=== PATIENT | male | born 1985 | race Caucasian/White ===

== ENCOUNTER 2016-07-29 14:48 | Emergency (ER) | payer OTHER ==
--- NOTE | ~2016-07-29 | CT71 ---
[facility] A Service [facility] RADIOLOGY TEXT RESULTS PATIENT: JUDY DOMÍNGUEZ LOCATION: [facility] : 85 UNIT #: [id number] AGE: [address]: Sergei Rosales DO SEX: M ORDER DR: [id number] [place] [id number] [facility] [place], [place] [address] [id number] E MR#: [id number] Acc #: [id number] NAME: JUDY DOMÍNGUEZ : 1985 SEX: M STUDY DATE/TIME: 07/29/2016 18:34 UNIT: [facility] ROOM: STUDY DESCRIPTION: CT Head Wo Contrast Attending Physician: Sergei Rosales D.O. Ordering Physician: Sergei Rosales D.O. Primary Care Physician: No Primary Care Physician MEDICAL IMAGING REPORT This report is preliminary unless electronic signature is present EXAM CT head without contrast. INDICATIONS Forehead pain after fall today. PROCEDURE Unenhanced CT of the head. This CT exam was performed with one or more of the following radiation dose reduction techniques: automatic exposure control, adjustment of mA and/or kV according to patient size, and iterative reconstruction. COMPARISON None. FINDINGS No acute hemorrhage, abnormal mass effect, extraaxial collection or hydrocephalus. No calvarial fracture. Paranasal sinuses, mastoid air cells are predominantly clear. IMPRESSION No acute intracranial findings. Dictated by... Luis Escoto M.D. THIS IS AN ELECTRONICALLY VERIFIED REPORT Luis Escoto M.D. at 08/01/2016 7:02 AM EED/gz TD: 07/30/2016 09:15 JOB #: [id number] [facility] A Service [facility] RADIOLOGY TEXT RESULTS PATIENT: JUDY DOMÍNGUEZ LOCATION: [facility] : 85 UNIT #: [id number] AGE: [address]: Sergei Rosales DO SEX: M ORDER DR: MEDICAL IMAGING REPORT COPY
--- NOTE | ~2016-07-29 | CT4 ---
[facility] A Service of [facility] RADIOLOGY TEXT RESULTS PATIENT: JUDY DOMÍNGUEZ LOCATION: [facility] : 85 UNIT #: [id number] AGE: [address]: Sergei Rosales DO SEX: M ORDER DR: [id number] [facility] [address] [place], [place] [address] [id number] E MR#: [id number] Acc #: [id number] NAME: JUDY DOMÍNGUEZ : 1985 SEX: M STUDY DATE/TIME: 07/29/2016 19:31 UNIT: [facility] ROOM: STUDY DESCRIPTION: CT Abd and Pelv Wo Cont Attending Physician: Sergei Rosales D.O. Ordering Physician: Sergei Rosales D.O. Primary Care Physician: No Primary Care Physician MEDICAL IMAGING REPORT This report is preliminary unless electronic signature is present EXAM CT scan of the abdomen and pelvis without contrast 07/29/2016. HISTORY Left flank pain and back pain for 1.5 weeks, right flank pain for the last 3 days. Evaluate for obstructing renal calculus. TECHNIQUE Spiral CT was performed through the abdomen and pelvis without oral or intravenous contrast administration using renal stone protocol. This CT exam was performed with one or more of the following radiation dose reduction techniques: automatic exposure control, adjustment of mA and/or kV according to patient size, and iterative reconstruction. FINDINGS Abdomen: There is no obstructing renal or ureteral calculus. The kidneys are normal bilaterally. Visualized liver, spleen, pancreas, gallbladder and biliary tree and adrenal glands are normal. Pelvis: The gut, mesenteric and cleo structures are normal. There is no free fluid in the abdomen or pelvis. IMPRESSION No obstructing renal or ureteral calculus. Dictated by... Favian Polk M.D. THIS IS AN ELECTRONICALLY VERIFIED REPORT Favian Polk M.D. at 07/30/2016 2:14 PM KRT/gz [facility] A Service of [facility] RADIOLOGY TEXT RESULTS PATIENT: JUDY DOMÍNGUEZ [id number] [birth year] UNIT #: [id number] AGE: [address]: Sergei Rosales DO SEX: M ORDER DR: TD: 07/30/2016 09:30 JOB #: [id number] MEDICAL IMAGING REPORT COPY
--- NOTE | ~2016-07-29 | EKG ---
PATIENT: JUDY DOMÍNGUEZ UNIT #: [id number] Ventricular Rate: 85 BPM Atrial Rate: 85 BPM P-R Interval: 138 ms QRS Duration: 88 ms Q-T Interval: 370 ms QTC Calculation(Bezet): 440 ms P [place]: 22 degrees Calculated R [place]: 7 degrees Calculated T [place]: 6 degrees Diagnosis Line: Normal sinus rhythm Diagnosis Line: Normal ECG Diagnosis Line: No previous ECGs available Diagnosis Line: Confirmed by CLEMENTINA CUENCA MD ([id number]) on Diagnosis Line: 07/31/2016 12:04:06 AM INTERPRETING MD: BANG PARIKH
--- NOTE | ~2016-07-29 | CR72 ---
[facility] A Service of [facility] RADIOLOGY TEXT RESULTS PATIENT: JUDY DOMÍNGUEZ LOCATION: [facility] : 85 UNIT #: [id number] AGE: [address]: Sergei Rosales DO SEX: M ORDER DR: [id number] [facility] [address] [place], [place] [address] [id number] E MR#: [id number] Acc #: [id number] NAME: JUDY DOMÍNGUEZ : 1985 SEX: M STUDY DATE/TIME: 07/29/2016 14:58 UNIT: [facility] ROOM: STUDY DESCRIPTION: CR Chest Single View Portable Attending Physician: Sergei Rosales D.O. Ordering Physician: Sergei Rosales D.O. Primary Care Physician: Primary Care Physician No MEDICAL IMAGING REPORT This report is preliminary unless electronic signature is present EXAM Portable chest INDICATIONS Syncopal episode today. Questionable overdose. PROCEDURE Frontal view chest COMPARISON 07/07/2016 FINDINGS Heart size is not significantly changed. Poor inspiratory effort but no dense consolidation, effusion or pneumothorax. IMPRESSION No active process. Dictated by... Luis Escoto M.D. THIS IS AN ELECTRONICALLY VERIFIED REPORT Luis Escoto M.D. at 08/01/2016 7:01 AM SERGIO/linh TD: 07/30/2016 07:19 JOB #: [id number] MEDICAL IMAGING REPORT COPY
[~2016-07-29 14:48] MED LIST: AMOXICILLIN875 MG PO; DEXILANT30 MG PO; GABAPENTIN600 MG PO; PAXIL40 MG PO; PROAIR HFA8.5 GM INH
[2016-07-29 15:11] LABS: BASOPHIL% 0.2 % (0-2.5); EOSINOPHIL# 0.1 X10e3 (0-0.7); EOSINOPHIL% 1.6 % (0.0-7.0); HEMATOCRIT 38.5 % (38.0-50.0); HEMOGLOBIN 13.1 gm/dL (13.0-16.0); LYMPHOCYTE# 1.5 X10e3 (1.0-3.5); LYMPHOCYTE% 23.1 % (17.0-45.0); MEAN CELL VOLUME 81.8 FL (83-96); MEAN CORPUSCULAR HEMOGLOBIN 27.9 PG (28-34); MEAN CORPUSCULAR HGB CONC 34.1 g/dL (30-36); MEAN PLATELET VOLUME 8.1 FL (6.5-11.5); MONOCYTE# 0.5 X10e3 (0-1.0); MONOCYTE% 7.9 % (3.0-12.0); NEUTROPHIL# 4.2 X10e3 (1.5-7.1); NEUTROPHIL% 67.2 % (40-75); PLATELET COUNT 186 X10e3 (140-420); RED BLOOD COUNT 4.71 X10e (3.90-5.60); WHITE BLOOD COUNT 6.3 X10e3 (4.0-10.5)
[2016-07-29 15:13] LABS: POC - CKMB <1.0 ng/mL (0.0-7.9); POC - TROPONIN <0.05 ng/mL (<=0.05)
[2016-07-29 15:15] LABS: DIFF IND NO
[2016-07-29 15:21] LABS: PARTIAL THROMBOPLASTIN TIME 27.2 SECONDS (23.5-31.3)
[2016-07-29 15:32] LABS: ALBUMIN SERUM 3.9 g/dL (3.5-5.0); ALKALINE PHOSPHATASE 63 U/L (32-92); ALT (SGPT) 15 U/L (10-40); AST (SGOT) 25 U/L (10-42); BILIRUBIN, DIRECT 0.1 mg/dL (0.0-0.2); BILIRUBIN,INDIRECT 0.4 mg/dL (0.0-0.9); BILIRUBIN,TOTAL 0.5 mg/dL (0.2-2.0); BLOOD UREA NITROGEN 9 mg/dL (9-23); CALCIUM SERUM 8.5 mg/dL (8.4-10.2); CARBON DIOXIDE 27 mmol/L (22-31); CHLORIDE 102 mmol/L (100-111); GLOM FILT RATE Estimated ABOVE60 mL/min (>60); GLUCOSE FASTING 113 mg/dL (70-110); POTASSIUM 3.8 mmol/L (3.5-5.1); PROTEIN TOTAL SERUM 7.9 g/dL (6.0-8.3); SODIUM 135 mmol/L (135-145)
== END 2016-07-29 21:00 | disposition home or self-care (01) ==
LOC: CED 14:48
PROVIDERS: Emergency Medicine
DX: T40.601A Poisoning by unspecified narcotics, accidental (unintentional), initial encounter (principal); R55 Syncope and collapse; Y92.9 Unspecified place or not applicable; F41.9 Anxiety disorder, unspecified; Z88.1 Allergy status to other antibiotic agents; Z79.899 Other long term (current) drug therapy
CPT/HCPCS: 36415; 70450; 71010; 74176; 80048; 80076; 82553; 84484; 85025; 85379; 85610; 85730; 93005; 96361; 96374; 99284; J2405

== ENCOUNTER 2016-07-30 03:07 | Inpatient (IN) | payer OTHER ==
--- NOTE | ~2016-07-30 | DS ---
Unit #: [id number] #: [id number] Patient: JUDY DOMÍNGUEZ [id number] [address] [address] [id number] I MR#: [id number] NAME: JUDY DOMÍNGUEZ ROOM: 308 Age: 31 Sex: M Admission Date: 07/30/2016 : 1985 Discharge Date: 08/01/2016 Attending Physician: Adam Osuna M.D. DISCHARGE SUMMARY ADMISSION DIAGNOSES 1. Sepsis syndrome. 2. Aspiration pneumonia, possible Staphylococcus aureus. 3. Acute hypoxemic respiratory failure. 4. Heroin overdose, recurrent. 5. Hepatitis C. 6. Depression without suicidal ideation. 7. Tobacco abuse. DISCHARGE DIAGNOSES 1. Sepsis syndrome, resolved. 2. Aspiration pneumonia, possible Staphylococcus aureus, stable. 3. Acute hypoxemic respiratory failure, resolved. 4. Heroin overdose, recurrent. 5. Hepatitis C. 6. Depression without suicidal ideation. 7. Tobacco abuse. 8. Rule out possible endocarditis, ruled out. [employer] Brett Steele M.D., Psychiatry. PROCEDURES None. ALLERGIES Doxycycline. DIAGNOSTIC STUDIES LABORATORY RESULTS: WBC 4.9, hemoglobin 11.7, hematocrit 35.2, platelet count 165,000. Sodium 140, potassium 3.8, chloride 104, CO2 of 30, glucose 95, BUN 9, creatinine 1.2, calcium 8.6, AST 20, ALT 12, alkaline phos 45, bilirubin total 1.3, total protein 6.7, albumin 3.4. Blood cultures, preliminary x2, no growth at 24 hours. Final blood culture is pending at this time. Procalcitonin 0.19. Hepatitis B surface antigen negative, hepatitis C antibody positive. HIV 1/2 antigen/antibody screen nonreactive. Admission lactic acid 1.1. IMAGING STUDIES: Two-view chest x-ray, 07/31/2016, conclusion; no active disease. CT of the abdomen and pelvis without contrast, 07/29/2016, impression; no obstructing renal or ureteral calculus. CT of the head, 07/29/2016, impression; no acute intracranial findings. Unit #: [id number] #: [id number] Patient: JUDY DOMÍNGUEZ Transthoracic echocardiogram, conclusions; left ventricle size is normal, normal left ventricular wall thickness, impaired relaxation (grade 1 diastolic dysfunction), globally normal left ventricular systolic function, ejection fraction is visually estimated at 55%, normal right ventricular size and function, mild tricuspid regurgitation, no documentation of agitation. DISCHARGE CONDITION Stable. DISCHARGE MEDICATIONS Proventil HFA 2 puffs inhaled q.4 hours p.r.n. shortness of air, Neurontin 300 mg p.o. t.i.d., Paxil 40 mg p.o. daily, trazodone 100 mg p.o. at bedtime, Requip 1 mg p.o. b.i.d., Vistaril 50 mg p.o. t.i.d., Protonix 40 mg p.o. daily, Fluzone 0.5 mL IM date of discharge if not contraindicated. DISCHARGE DISPOSITION Home. Home health not needed per conversation between Dr. Osuna and Dr. Steele. The patient initially was to be transferred directly to [facility]; however, the patient has decided on discharge home and he is to follow up with Dr. Steele per his recommendations for further treatment of IV drug [facility] at [facility]. DISCHARGE INSTRUCTIONS 1. The patient will be discharged home. The patient is to call and schedule a followup appointment with his primary care physician in 5 to 7 days. 2. Please note, the patient has been given a prescription for 30 day supply of the following medications and these appeared to be new medications for the patient prescribed during this hospitalization; trazodone, Requip, Vistaril, and Protonix. There are no refills on these medications and this patient is to follow up with his primary care physician and Dr. Steele after discharge. HOSPITAL COURSE The patient is a 31-year-old, male, who presented to [facility] on the date of admission with complaint of shortness of breath and coughing up blood. The patient is noted have a history of heroin and Suboxone abuse. It is noted to be the patient's third inpatient admission for opioid overdose in the past 4 months period. The patient's mother stated he had been found in bed with an IV and presumably had used heroin. Chest x-ray showed worsening infiltrate on the left per Dr. Oneil's personal review of the radiology film. The patient was admitted to the hospital for admission diagnoses above. Blood cultures were drawn prior to initiation of IV antibiotic therapy with Zosyn and vancomycin. Dr. Steele was consulted for further psychiatric evaluation and management of the patient's continued drug abuse. Please refer to history and physical report for complete details. Sepsis syndrome; the patient was treated with IV antibiotics and procalcitonin was checked, which revealed a result of 0.19. The patient's white count, respiratory rate, blood pressure are all stable at this time. The patient is alert and oriented. Sputum cultures are pending at this time. The patient is asymptomatic. The patient was underwent a 2D echocardiogram, which showed no vegetation. Summary is as dictated above. At this time, upon discussion with Dr. Osuna, because the patient is afebrile, has a normal white count, and is alert and oriented x3, and wants to be discharged, we will discontinue all antibiotics and the Unit #: [id number] #: [id number] Patient: JUDY DOMÍNGUEZ patient will follow up with his primary care physician. Heroin overdose, recurrent. Dr. Steele was consulted and initially the plan was for the patient to be transferred to [facility]. The patient was started on Desyrel, Requip, Vistaril per order of Dr. Steele. The patient has not shown active signs of withdrawal at this time. Again, the plan is for the patient to follow up with Dr. Steele as an outpatient and to undergo therapy for IV drug abuse at [facility] on an outpatient basis. Hep C; the patient is aware of this diagnosis. He is to follow up with his primary care physician for referral to vice president fixed income for further evaluation and management of this condition, if indicated. Tobacco abuse; the patient has been counseled on smoking cessation and he has verbalized understanding of this information. The patient has been evaluated by Dr. Osuna. He has been cleared for discharge home with the above referenced discharge medications and followup instructions. All of his questions have been answered. Dictated by... Eneida Ivy A.P.R.N. for Alice Gilliland/krystal TD: 08/03/2016 01:03 JOB #: [id number] DISCHARGE SUMMARY X Eneida Ivy APRN X DISCHARGE SUMMARY
--- NOTE | ~2016-07-30 | CR63 ---
[facility] A Service of [facility] RADIOLOGY TEXT RESULTS PATIENT: JUDY DOMÍNGUEZ LOCATION: [facility] 308-01 : 85 UNIT #: [id number] AGE: [address]: Adam Osuna MD SEX: M ORDER DR: [id number] [facility] [address] [place], [place] [address] [id number] I MR#: [id number] Acc #: [id number] NAME: JUDY DOMÍNGUEZ : 1985 SEX: M STUDY DATE/TIME: 07/31/2016 13:08 UNIT: [address] ROOM: [facility] STUDY DESCRIPTION: CR Chest 2 View Attending Physician: Adam Osuna M.D. Ordering Physician: Adam Osuna M.D. Primary Care Physician: No Primary Care Physician MEDICAL IMAGING REPORT This report is preliminary unless electronic signature is present EXAM Chest, PA and lateral. HISTORY Shortness of breath, cough, congestion, and fever for 3 days. TECHNIQUE PA and lateral views of the chest are obtained. FINDINGS The cardiovascular configuration of the chest appears normal and the lungs are clear. CONCLUSION No active disease. Dictated by... Jer Valladares M.D. THIS IS AN ELECTRONICALLY VERIFIED REPORT Jer Valladares M.D. at 08/01/2016 8:00 AM FRANCIS/sofie TD: 07/31/2016 16:10 JOB #: [id number] MEDICAL IMAGING REPORT COPY
--- NOTE | ~2016-07-30 | CR72 ---
[facility] A Service of [facility] & [facility] RADIOLOGY TEXT RESULTS PATIENT: JUDY DOMÍNGUEZ LOCATION: [place] [id number] : [birth year] UNIT #: [id number] AGE: [address]: Song Oneil MD SEX: M ORDER DR: [id number] [facility] [address] [place], [place] [address] [id number] I MR#: [id number] Acc #: [id number] NAME: JUDY DOMÍNGUEZ : 1985 SEX: M STUDY DATE/TIME: 07/30/2016 1:15 UNIT: [facility] ROOM: [facility] STUDY DESCRIPTION: CR Chest Single View Portable Attending Physician: Song Oneil M.D. Ordering Physician: Fabrice Zelaya M.D. Primary Care Physician: No Primary Care Physician MEDICAL IMAGING REPORT This report is preliminary unless electronic signature is present EXAM AP portable chest. Date: 07/30/2016 at 01:17. HISTORY Shortness breath, cough and weakness today. COMPARISON AP portable chest 07/29/2016 at 14:58. FINDINGS Faint reticular interstitial type infiltrates are seen diffusely throughout the left lung and within the right [id number] lung zone. No dense consolidative changes are identified. No pleural effusion or pneumothorax is seen. Heart size is normal. No pleural effusion. No pneumothorax. Suspected faint reticular interstitial type infiltrates throughout the left lung and to a lesser degree right lower lobe. Correlate clinically for atypical interstitial pneumonia. Short-term radiographic followup recommended. Dictated by... Ena Alexis M.D. THIS IS AN ELECTRONICALLY VERIFIED REPORT Ena Alexis M.D. at 07/30/2016 9:57 PM LLH/gz TD: 07/30/2016 12:01 JOB #: [id number] MEDICAL IMAGING REPORT COPY
--- NOTE | ~2016-07-30 | HP ---
Unit #: [id number] #: [id number] Patient: DALJIT SHARMA [id number] [address] [place], [place] [address] [id number] I MR#: [id number] NAME: DALJIT SHARMA ROOM: [facility] Age: 31 Sex: M Admission Date: 07/30/2016 : 1985 Attending Physician: Song Oneil M.D. Primary Care Physician: No Primary Care Physician HISTORY AND PHYSICAL REASON FOR ADMISSION Acute hypoxemic respiratory failure. CHIEF COMPLAINT Shortness of breath and "coughing up blood." HISTORY OF PRESENT ILLNESS Mr. Daljit Sharma is a 31-year-old white male with a history of heroin and Suboxone abuse for whom this is the third inpatient admission for opiate overdose in the last four months. He was previously admitted to [facility] in April. He presented to the ER 24 hours ago for unclear complaints and had a CT of his head and a CT of his abdomen for stone protocol done along with basic lab work. He was then discharged back home late last night at approximately 9 p.m. only to present back to the emergency room at 1 a.m. this morning with worse labs and vital signs and new infiltrate on his chest x-ray. Per his mother who was present with him, he had been found in his bed with an IV needed in the bed and presumably had used heroin although patient reports that he cannot remember what happened, although he does remember using Suboxone prior to his first ER visit. The patient suspects he used heroin but he denies any memory of it. He was found in the bed by his family with some frothy red vomitus on the bed next to him. There was no actual history of vomiting up fredrcik blood despite the stated chief complaint on the ER T sheet. The patient does endorse some cough over the last 24 hours, although it has not been productive of blood. He endorses some mild shortness of breath. No pain on deep breathing. No chest pain or chest pressure. No skipped heartbeats. No fevers, chills, or night sweats. He does endorse some fatigue and some mildly depressed mood but denies any suicidal ideation or homicidal ideation. PAST MEDICAL HISTORY 1. Heroin abuse. 2. Hepatitis C. 3. Repeated overdoses, unintentional. PAST SURGICAL HISTORY None. ALLERGIES Doxycycline. Unit #: [id number] #: [id number] Patient: DALJIT SHARMA HOME MEDICATIONS 1. Gabapentin 600 mg p.o. five times a day. 2. Paxil 40 mg p.o. daily. 3. ProAir HFA two puffs q.4 hours p.r.n. shortness of breath. SOCIAL HISTORY He uses chewing tobacco. No alcohol use. History of IV heroin abuse which is ongoing. Recent addition of Suboxone use as well. FAMILY HISTORY Mother with Castleman lymphoma. REVIEW OF SYSTEMS A full 10-point review of systems was done. All is completely negative except for the positives noted above in the HPI. PHYSICAL EXAMINATION VITAL SIGNS: Oxygen saturation was 86% on room air upon presentation to the emergency room this morning at 1 a.m. He is now saturating 100% on 4 L nasal cannula when I evaluated him in the ICU. Temperature is 98.2, pulse upon presentation was 128 and it is down to 86. Respiratory rate was 21 on presentation and is down to 16. Blood pressure was 88/58 within an hour of first presentation and is improved to 112/69. GENERAL: The patient is alert and oriented in no acute distress. CARDIOVASCULAR: Regular rate and rhythm. No murmurs. LUNGS: Mild inspiratory rhonchi on the left side, clear on the right. No wheezing or crackles on either side. ABDOMEN: Soft, nontender, nondistended. No mass or hepatosplenomegaly. EXTREMITIES: No clubbing, cyanosis, or edema. SKIN: No rashes or lesions. Skin is warm and dry throughout. MUSCULOSKELETAL: No joint effusions. No muscle or joint tenderness. HEAD: Normocephalic and atraumatic. EYES: Sclerae are white. Conjunctivae are normally infused. NOSE: External nares are normal. There is no bleeding or drainage. MOUTH: Mucous membranes are moist. There are no oropharyngeal lesions. NECK: Supple. No cervical lymphadenopathy. Trachea is midline. NEUROLOGIC: Patient has 5/5 strength in all four extremities. No focal neurologic deficits. DIAGNOSTIC STUDIES LABORATORY: Initial CBC upon return to the emergency room at 1 a.m. showed a white blood cell count of 14.3. Troponin was negative. Complete metabolic profile was otherwise within normal limits with the exception of calcium of 8.2. B natriuretic peptide was 18. Lactic acid was 1.1. IMAGING: Chest x-ray was reviewed which showed worsening infiltrate, especially on the left on my personal evaluation of the films. CARDIOVASCULAR: EKG showed sinus tachycardia. ASSESSMENT 1. Sepsis syndrome. 2. Aspiration pneumonia, possible Staphylococcus aureus. 3. Acute hypoxemic respiratory failure. 4. Heroin overdose, recurrent. 5. Hepatitis C. 6. Depression without suicidal ideation. 7. Tobacco abuse. Unit #: [id number] #: [id number] Patient: DALJIT SHARMA PLAN Will continue the patient on Zosyn. Will add vancomycin for now. Likely be able to discharge on clindamycin once the patient is off oxygen as long as his labs, vitals, and cultures remain improved. Will wean his oxygen as able and will consult psychiatry for his repeated drug overdoses. His mother expresses concerns that he is going to either accidentally or intentionally kill himself in the near future, although the patient denies any suicidal ideation. His overdose was severe enough to require intubation at [facility] in April. Will recommend having [facility] evaluate him for possible inpatient drug rehab at the time of discharge. Will check a urine drug screen and urinalysis and hepatitis C PCR to confirm his presumptive diagnosis of hepatitis C. Will add Lovenox for deep venous thrombosis prophylaxis. Will restart his home gabapentin at a lower dose. Dictated by Song Oneil M.D. DINORA/ana TD: 07/30/2016 11:05 JOB #: [id number] HISTORY AND PHYSICAL X Song Oneil MD X HISTORY AND PHYSICAL
--- NOTE | ~2016-07-30 | EKG ---
PATIENT: JUDY DOMÍNGUEZ UNIT #: [id number] Ventricular Rate: 111 BPM Atrial Rate: 111 BPM P-R Interval: 130 ms QRS Duration: 92 ms Q-T Interval: 338 ms QTC Calculation(Bezet): 459 ms P [place]: 52 degrees Calculated R [place]: 76 degrees Calculated T [place]: 25 degrees Diagnosis Line: Sinus tachycardia Diagnosis Line: Otherwise normal ECG Diagnosis Line: No previous ECGs available Diagnosis Line: Confirmed by CLEMENTINA CUENCA MD ([id number]) on Diagnosis Line: 07/31/2016 12:05:12 AM INTERPRETING MD: BANG PARIKH
--- NOTE | ~2016-07-30 | CO ---
Unit #: [id number] #: [id number] Patient: DALJIT DOMÍNGUEZ [id number] [facility]. [place], [place] [address] [id number] I MR#: [id number] NAME: DALJIT DOMÍNGUEZ ROOM: 308 Age: 31 Sex: M Admission Date: 07/30/2016 : 1985 Attending Physician: Adam Osuna M.D. Primary Care Physician: Heidi Primary Care Physician Consultation Date: 07/31/2016 CONSULTATION REPORT REASON FOR CONSULTATION Opiate withdrawal. HISTORY OF PRESENT ILLNESS Mr. Daljit Domínguez is a 31-year-old male seen on 07/31 in room 308 at [facility]. Patient reported using heroin IV. Reported currently having withdrawal symptoms. Patient reported last use recently. Patient reported feeling restlessness, hot and cold flashes, trouble sleeping, restlessness of his legs, mood lability, severe anxiety but denied any thoughts of harming self or others. No psychotic symptoms. PAST PSYCHIATRIC HISTORY Remarkable for history of substance abuse, as mentioned above; mainly abuses opiates. MEDICAL HISTORY History of hepatitis C. MEDICATIONS The patient is on gabapentin, Paxil, ProAir. FAMILY HISTORY/SOCIAL HISTORY The patient has a good support system. History of substance abuse. No history of any abuse. REVIEW OF SYSTEMS A complete review of systems is remarkable for above-mentioned symptoms - restlessness, anxiety. MENTAL STATUS EXAMINATION General appearance - Patient is dressed casually. Attention span, concentration - fair. Speech - Regular rate. Oriented to time, place and person. Mood and affect - Sad, dysphoric, anxious. Thought process - Coherent. Thought content - The patient denied any thoughts of harming self or others. Recent and remote memory - Fair. Language - Able to name objects, repeat phrases. Fund of knowledge - Fair. Insight and judgment - Fair to slightly impaired. DIAGNOSIS 1. PSYCHIATRIC: F11.20, opiate use disorder, severe; mood disorder NOS, F32.9. 2. SECONDARY DIAGNOSIS: Deferred. 3. MEDICAL DIAGNOSIS: Please refer to H and P. 4. STRESSOR: Psychosocial stressors. Unit #: [id number] #: [id number] Patient: DALJIT DOMÍNGUEZ ASSESSMENT AND PLAN 1. Supportive psychotherapy and psychoeducation provided to the patient. 2. Educated about benefits and side effects of medication, course and prognosis of illness. 3. Advised medications for detox, such as Vistaril, Requip, Neurontin, trazodone. We will continue to follow. If needed, consider further adjustment in medications. Plan to stabilize the patient and consider [facility] if needed and psychiatric stabilization. Please feel free to call with any questions, telephone number . Dictated by... Alice Jha/spike TD: 08/01/2016 12:07 JOB #: [id number] CONSULTATION REPORT X Brett Steele MD CONSULTATION REPORT
[2016-07-30 03:15] LABS: BASOPHIL% 0.1 % (0-2.5); EOSINOPHIL% 0.1 % (0.0-7.0); HEMATOCRIT 39.7 % (38.0-50.0); HEMOGLOBIN 13.2 gm/dL (13.0-16.0); LYMPHOCYTE# 1.1 X10e3 (1.0-3.5); LYMPHOCYTE% 7.9 % (17.0-45.0); MEAN CELL VOLUME 83.1 FL (83-96); MEAN CORPUSCULAR HEMOGLOBIN 27.6 PG (28-34); MEAN CORPUSCULAR HGB CONC 33.2 g/dL (30-36); MEAN PLATELET VOLUME 8.6 FL (6.5-11.5); MONOCYTE# 0.6 X10e3 (0-1.0); MONOCYTE% 4.5 % (3.0-12.0); NEUTROPHIL# 12.5 X10e3 (1.5-7.1); NEUTROPHIL% 87.4 % (40-75); PLATELET COUNT 246 X10e3 (140-420); RED BLOOD COUNT 4.77 X10e (3.90-5.60); RED CELL DISTRIBUTION WIDTH 14.1 % (11.0-15.5)
[2016-07-30 03:16] LABS: DIFF IND NO; WHITE BLOOD COUNT 14.3 X10e3 (4.0-10.5)
[2016-07-30 03:19] LABS: POC - CKMB 1.7 ng/mL (0.0-7.9); POC - TROPONIN <0.05 ng/mL (<=0.05)
[2016-07-30 03:33] LABS: ALBUMIN SERUM 3.9 g/dL (3.5-5.0); ALKALINE PHOSPHATASE 61 U/L (32-92); ALT (SGPT) 20 U/L (10-40); AST (SGOT) 31 U/L (10-42); BILIRUBIN, DIRECT 0.1 mg/dL (0.0-0.2); BILIRUBIN,INDIRECT 0.6 mg/dL (0.0-0.9); BILIRUBIN,TOTAL 0.7 mg/dL (0.2-2.0); BLOOD UREA NITROGEN 11 mg/dL (9-23); BUN/CREATININE RATIO 7.85; CALCIUM SERUM 8.2 mg/dL (8.4-10.2); CARBON DIOXIDE 25 mmol/L (22-31); CHLORIDE 104 mmol/L (100-111); CREATININE SERUM 1.4 mg/dL (0.6-1.4); GLOM FILT RATE Estimated ABOVE60 mL/min (>60); GLUCOSE FASTING 105 mg/dL (70-110); POTASSIUM 3.5 mmol/L (3.5-5.1); PROTEIN TOTAL SERUM 7.5 g/dL (6.0-8.3); SODIUM 136 mmol/L (135-145)
[2016-07-30 05:46] LABS: BASOPHIL% 0.3 % (0-2.5); EOSINOPHIL% 0.1 % (0.0-7.0); HEMATOCRIT 38.7 % (38.0-50.0); HEMOGLOBIN 13.1 gm/dL (13.0-16.0); LYMPHOCYTE# 1.2 X10e3 (1.0-3.5); LYMPHOCYTE% 12.6 % (17.0-45.0); MEAN CELL VOLUME 82.9 FL (83-96); MEAN CORPUSCULAR HGB CONC 33.8 g/dL (30-36); MEAN PLATELET VOLUME 8.2 FL (6.5-11.5); MONOCYTE# 0.7 X10e3 (0-1.0); MONOCYTE% 7.5 % (3.0-12.0); NEUTROPHIL# 7.6 X10e3 (1.5-7.1); NEUTROPHIL% 79.5 % (40-75); PLATELET COUNT 225 X10e3 (140-420); RED BLOOD COUNT 4.66 X10e (3.90-5.60); WHITE BLOOD COUNT 9.6 X10e3 (4.0-10.5)
[2016-07-30 05:47] LABS: DIFF IND NO
[2016-07-30 06:15] LABS: ALBUMIN SERUM 4.1 g/dL (3.5-5.0); ALKALINE PHOSPHATASE 63 U/L (32-92); ALT (SGPT) 22 U/L (10-40); AST (SGOT) 32 U/L (10-42); BILIRUBIN,TOTAL 0.9 mg/dL (0.2-2.0); BLOOD UREA NITROGEN 11 mg/dL (9-23); BUN/CREATININE RATIO 8.46; CALCIUM SERUM 8.6 mg/dL (8.4-10.2); CARBON DIOXIDE 29 mmol/L (22-31); CHLORIDE 100 mmol/L (100-111); CREATININE SERUM 1.3 mg/dL (0.6-1.4); GLOM FILT RATE Estimated ABOVE60 mL/min (>60); GLUCOSE FASTING 89 mg/dL (70-110); POTASSIUM 4.8 mmol/L (3.5-5.1); PROTEIN TOTAL SERUM 7.9 g/dL (6.0-8.3); SODIUM 138 mmol/L (135-145)
[2016-07-30 16:31] LABS: URINE SOURCE CATH
[2016-07-30 16:48] LABS: URINE APPEARANCE CLEAR; URINE BILIRUBIN NEG (NEG); URINE BLOOD NEG (NEG); URINE COLOR YELLOW; URINE GLUCOSE NEG (NEG); URINE KETONE NEG (NEG); URINE LEUKOCYTE ESTERASE NEG (NEG); URINE NITRATE NEG (NEG); URINE PROTEIN TRACE (NEG); URINE SPECIFIC GRAVITY 1.018 (1.003-1.035); URINE UROBILINOGEN 0.2 MG/DL (NEG)
[2016-07-30 17:17] LABS: CULTURE INDICATED? NO
[2016-07-31 07:19] LABS: ALBUMIN SERUM 3.2 g/dL (3.5-5.0); ALT (SGPT) 15 U/L (10-40); AST (SGOT) 22 U/L (10-42); BILIRUBIN,TOTAL 1.3 mg/dL (0.2-2.0); BLOOD UREA NITROGEN 12 mg/dL (9-23); CALCIUM SERUM 8.2 mg/dL (8.4-10.2); CARBON DIOXIDE 27 mmol/L (22-31); CHLORIDE 103 mmol/L (100-111); CREATININE SERUM 1.1 mg/dL (0.6-1.4); GLOM FILT RATE Estimated ABOVE60 mL/min (>60); GLUCOSE FASTING 123 mg/dL (70-110); POTASSIUM 3.6 mmol/L (3.5-5.1); PROTEIN TOTAL SERUM 6.3 g/dL (6.0-8.3); SODIUM 137 mmol/L (135-145)
[2016-07-31 07:20] LABS: ALKALINE PHOSPHATASE 48 U/L (32-92)
[2016-07-31 09:38] LABS: BASOPHIL% 0.4 % (0-2.5); EOSINOPHIL# 0.2 X10e3 (0-0.7); EOSINOPHIL% 4.7 % (0.0-7.0); HEMATOCRIT 33.4 % (38.0-50.0); HEMOGLOBIN 11.2 gm/dL (13.0-16.0); LYMPHOCYTE# 2.8 X10e3 (1.0-3.5); LYMPHOCYTE% 58.9 % (17.0-45.0); MEAN CELL VOLUME 83.8 FL (83-96); MEAN CORPUSCULAR HEMOGLOBIN 28.2 PG (28-34); MEAN CORPUSCULAR HGB CONC 33.6 g/dL (30-36); MEAN PLATELET VOLUME 8.6 FL (6.5-11.5); MONOCYTE# 0.4 X10e3 (0-1.0); MONOCYTE% 7.9 % (3.0-12.0); NEUTROPHIL# 1.3 X10e3 (1.5-7.1); NEUTROPHIL% 28.1 % (40-75); PLATELET COUNT 146 X10e3 (140-420); RED BLOOD COUNT 3.99 X10e (3.90-5.60); RED CELL DISTRIBUTION WIDTH 13.7 % (11.0-15.5); WHITE BLOOD COUNT 4.7 X10e3 (4.0-10.5)
[2016-07-31 09:39] LABS: DIFF IND NO
[2016-07-31 12:20] LABS: TMH HEPATITIS B SURFACE AG -JH Negative (Negative)
[2016-07-31 12:42] LABS: TMH HEPATITIS C AB - JH Positive (Negative)
[2016-08-01 07:32] LABS: HEMATOCRIT 35.2 % (38.0-50.0); HEMOGLOBIN 11.7 gm/dL (13.0-16.0); MEAN CELL VOLUME 83.6 FL (83-96); MEAN CORPUSCULAR HEMOGLOBIN 27.8 PG (28-34); MEAN CORPUSCULAR HGB CONC 33.2 g/dL (30-36); MEAN PLATELET VOLUME 8.3 FL (6.5-11.5); RED BLOOD COUNT 4.21 X10e (3.90-5.60); RED CELL DISTRIBUTION WIDTH 13.9 % (11.0-15.5); WHITE BLOOD COUNT 4.9 X10e3 (4.0-10.5)
[2016-08-01 08:12] LABS: ALBUMIN SERUM 3.4 g/dL (3.5-5.0); ALKALINE PHOSPHATASE 45 U/L (32-92); ALT (SGPT) 12 U/L (10-40); AST (SGOT) 20 U/L (10-42); BILIRUBIN,TOTAL 1.3 mg/dL (0.2-2.0); BLOOD UREA NITROGEN 9 mg/dL (9-23); CALCIUM SERUM 8.6 mg/dL (8.4-10.2); CARBON DIOXIDE 30 mmol/L (22-31); CHLORIDE 104 mmol/L (100-111); CREATININE SERUM 1.2 mg/dL (0.6-1.4); GLOM FILT RATE Estimated ABOVE60 mL/min (>60); GLUCOSE FASTING 95 mg/dL (70-110); POTASSIUM 3.8 mmol/L (3.5-5.1); PROTEIN TOTAL SERUM 6.7 g/dL (6.0-8.3); SODIUM 140 mmol/L (135-145)
[2016-08-01] MEDS ORDERED: GABAPENTIN300 M2 PO (14:01)
[2016-08-01] MEDS ORDERED: TRAZODONE HCL100 MG PO (14:02)
[2016-08-01] MEDS ORDERED: REQUIP1 MG PO (14:02)
[2016-08-01] MEDS ORDERED: HYDROXYZINE HCL50 MG PO (14:04)
[2016-08-01] MEDS ORDERED: PROTONIX PO (14:05)
[2016-08-02 22:06] LABS: HA AB IGM (HEPPAN) Nonreactive (Nonreactive); HB CORE AB IGM (HEPPAN) Nonreactive (Nonreactive); HB S AG (HEPPAN) Nonreactive (Nonreactive); HEP C AB (HEPPAN) Reactive (Nonreactive)
== END 2016-08-01 14:57 | disposition home or self-care (01) | DRG 917 ==
LOC: CED 03:07 → CEDOF 03:45 → CICCU2 06:18 → C3A PCU 07-31 03:32
PROVIDERS: Emergency Medicine; Internal Medicine
DX: T40.1X1A Poisoning by heroin, accidental (unintentional), initial encounter (principal); A41.01 Sepsis due to Methicillin susceptible Staphylococcus aureus; J96.01 Acute respiratory failure with hypoxia; J69.0 Pneumonitis due to inhalation of food and vomit; R65.20 Severe sepsis without septic shock; F11.23 Opioid dependence with withdrawal; Y92.009 Unspecified place in unspecified non-institutional (private) residence as the place of occurrence of the external cause; B19.20 Unspecified viral hepatitis C without hepatic coma; F17.220 Nicotine dependence, chewing tobacco, uncomplicated; F32.9 Major depressive disorder, single episode, unspecified; Z88.1 Allergy status to other antibiotic agents; Z71.51 Drug abuse counseling and surveillance of drug abuser
CPT/HCPCS: 36415; 71010; 71020; 80048; 80053; 80074; 80076; 81003; 82308; 82553; 82947; 83605; 83880; 84484; 85025; 85027; 86803; 87040; 87340; 87522; 87806; 90688; 93005; 93306; 94640; 94760; 99285; J1650; J2405; J2543; J2550; J3370

== ENCOUNTER 2016-08-01 22:48 | Inpatient (IN) | payer OTHER ==
--- NOTE | ~2016-08-01 | PA ---
Unit #: [id number] #: [id number] Patient: DALJIT DOMÍNGUEZ [id number] [facility] [address] [place] [address] [id number] I MR#: [id number] NAME: DALJIT DOMÍNGUEZ ROOM: P256 Age: 31 Sex: M Admission Date: 08/01/2016 : 1985 Date of Assessment: 08/02/2016 Attending Physician: Brtet Steele M.D. Admitting Physician: Brett Steele M.D. Primary Care Physician: Amalia Gomez Aprn PSYCHIATRIC ASSESSMENT INFORMANTS The patient reliability, fair; chart reliability, good. CHIEF COMPLAINT Detox from heroin. HISTORY OF PRESENT ILLNESS Daljit Domínguez is a 31-year-old male, seen on 2-Tanya. The patient presented with the above-mentioned complaint. The patient has a history of previous treatment outpatient for anxiety at [facility] in 2014. The patient lives with grandmother 71, currently unemployed. The patient reported that he had 2 heroin overdoses on Sunday. He went to the emergency room. The patient reported withdrawal from opioids. The patient reported having withdrawal symptom, anxiety, nervousness, and restlessness. The patient scored 18 on COWS scale. The patient currently denied any suicidal or homicidal ideation. Denied any psychotic symptom, anxious, nervous some. The patient reported symptoms such as diarrhea, diaphoresis, and depressed mood, irritability, nervousness, poor appetite, poor concentration, restlessness, rhinorrhea, sleep problem, tremors, muscle cramping, abdominal cramping. The patient reported history of blackout, history of hepatitis, withdrawal symptom, IV drug use. The patient reported tobacco use, age of onset 12; alcohol, age of onset 12; marijuana, age of onset 14; crack cocaine, age of onset 16; LSD, age of onset 16; opioid, age of onset 14; methadone, age of onset 20. PAST PSYCHIATRIC HISTORY History is remarkable for history of previous treatment on outpatient basis. No history of any suicide attempt. FAMILY HISTORY AND SOCIAL HISTORY The patient's family history is unremarkable. Social history; the patient has a good support system. No history of any abuse. MEDICAL HISTORY Remarkable for hepatitis C and kidney problems. ALLERGIES No known drug allergies. MEDICATION HISTORY The patient is on Paxil and Neurontin. SUBSTANCE ABUSE HISTORY Unit #: [id number] #: [id number] Patient: DALJIT DOMÍNGUEZ Please see above. REVIEW OF SYSTEMS HEENT: Eyes, clear. Ears, nose, mouth, and throat; clear. CARDIOVASCULAR: Unremarkable. RESPIRATORY: Unremarkable. GI: Unremarkable. : Unremarkable. SKIN: Unremarkable. LYMPH NODE: Unremarkable. NEUROLOGIC: Unremarkable. ENDOCRINE: Unremarkable. HEMATOLOGIC: Unremarkable. ALLERGIC/IMMUNOLOGIC: Unremarkable. MUSCULOSKELETAL: Muscle strength and tone, no atrophy or abnormal movement. Gait normal. PSYCHIATRIC EXAMINATION Description of speech; regular rate. Description of thought process, goal directed. Description of association, intact. Description of abnormal psychotic thinking; the patient denied any hallucination or delusions, but mood lability, substance abuse. Description of the patient's judgment, concerning everyday activity, poor. Social situation, poor. Concerning psychiatric condition, poor. Complete mental status examination; oriented in time, place, and person. Recent and remote memory, fair. Attention span and concentration, fair. Language, able to name object, repeat phrases. Fund of knowledge, aware of current event, passive vocabulary intact. Mood and affect, sad and dysphoric. Insight and judgment, fair to poor. ASSETS AND LIABILITIES The patient articulate, able to take care of his ADL. Liability; history of substance abuse and depression. ADMITTING DIAGNOSES Psychiatric: Opioid use disorder, severe, F11.20; opioid withdrawal, F11.23; mood disorder, not otherwise specified, F32.9. Secondary diagnosis: Deferred. Medical diagnosis: Hepatitis C and kidney problems. Stressors: Psychosocial stressors. PSYCHIATRIC PLAN, TREATMENT GOAL, AND DISCHARGE PLAN 1. Advised to admit the patient on the inpatient unit. Provide safe, supportive, and structured environment. 2. Ordered labs; CBC, CMP, UA, and UDS. 3. The patient to start with detox protocol and detox monitoring. 4. The patient if needed consider further adjustment of medication. 5. The patient to attend all the programing on the inpatient unit group therapy, individual therapy, family session if possible. 6. Treatment goal; to attain euthymic mood, gain insight into his problem, and learn coping skills. 7. Discharge plan; the patient to stabilize the patient and consider followup in outpatient program. Unit #: [id number] #: [id number] Patient: DALJIT DOMÍNGUEZ ESTIMATED LENGTH OF STAY 5 days. Dictated by... Alice Jha/krystal TD: 08/03/2016 08:02 JOB #: [id number] PSYCHIATRIC ASSESSMENT X Brett Steele MD PSYCHIATRIC ASSESSMENT
--- NOTE | ~2016-08-01 | DS ---
Unit #: [id number] #: [id number] Patient: JUDY DOMÍNGUEZ [id number] [facility] [address] [place] [address] [id number] I MR#: [id number] NAME: JUDY DOMÍNGUEZ ROOM: [facility] Age: 31 Sex: M Admission Date: 08/01/2016 : 1985 Discharge Date: 08/06/2016 Attending Physician: Brett Steele M.D. Primary Care Physician: Amalia Gomez Aprn DISCHARGE SUMMARY REASON FOR ADMISSION Detox. DIAGNOSTIC STUDIES LABORATORY RESULTS: Albumin 3.4. Urine toxicology negative. HOSPITAL COURSE The patient was admitted to inpatient unit on 08/01/2016 and discharged on 08/06/2016. The patient was treated on the inpatient unit with group therapy, individual therapy, medication management, and chemical dependency group. The patient responded well with the above modalities of treatment and detox protocol. The patient was subsequently discharged with a plan to follow up in outpatient program. DISCHARGE MEDICATIONS Paxil 40 mg daily for depression and Neurontin 600 mg five times daily for mood stabilization and anxiety. DISCHARGE DIAGNOSES Psychiatric: 1. Opioid use disorder, severe, F11.20. 2. Opioid withdrawals, F11.23. 3. Mood disorder, not otherwise specified, F32.9. 4. Anxiety disorder, not otherwise specified. Secondary diagnosis: Deferred. Medical diagnoses: History of hepatitis C, kidney problems. Stressors: Psychosocial stressors. DISCHARGE INSTRUCTIONS The patient is to follow up in outpatient clinic as per social worker assistant. CONDITION ON DISCHARGE The patient was pleasant and cooperative. Denied any psychotic symptom or any suicidal ideation. PROGNOSIS Guarded. DIET AND ACTIVITY As tolerated. Unit #: [id number] #: [id number] Patient: JUDY DOMÍNGUEZ Dictated by... Alice Jha/krystal TD: 08/06/2016 15:36 JOB #: [id number] DISCHARGE SUMMARY X Brett Steele MD X DISCHARGE SUMMARY
--- NOTE | ~2016-08-01 | PN ---
Unit #: [id number] #: [id number] Patient: DALJIT DOMÍNGUEZ [id number] [facility] [address] [place] [address] [id number] I MR#: [id number] NAME: DALJIT DOMÍNGUEZ ROOM: P256 Age: 31 Sex: M Admission Date: 08/01/2016 : 1985 Attending Physician: Brett Steele M.D. Admitting Physician: Brett Steele M.D. Primary Care Physician: Naya De Luna PROGRESS NOTES DATE 08/05/2016 DISCUSSION Daljit Domínguez is a 31-year-old male seen on 08/05/2016. The patient interviewed, chart reviewed. Obtained information from nursing staff. The patient was compliant and cooperative. Mood sad, dysphoric, flat affect, guarded. The patient denied any thoughts of harming self or others but cooperative, redirectable. Complete review of systems unremarkable. MENTAL STATUS EXAMINATION General appearance, the patient dressed casually. Attention span and concentration fair. Oriented to place and person. Mood and affect sad, dysphoric, flat. The patient currently withdrawing from opioids. The patient's thought process goal directed. The patient denied any thoughts of harming self or others but isolative, guarded, sad affect. Recent and remote memory poor. Insight and judgement poor. DIAGNOSES Opioid use disorder severe ASSESSMENT/PLAN Advise to continue with current medication and therapeutic protocol. We will monitor response to medication and make further adjustment of medication. Dictated by... Alice Jha/binh TD: 08/07/2016 02:57 JOB #: [id number] Unit #: [id number] #: [id number] Patient: DALJIT DOMÍNGUEZ PROGRESS NOTES X Brett Steele MD PROGRESS NOTE
--- NOTE | ~2016-08-01 | PN ---
Unit #: [id number] #: [id number] Patient: DALJIT DOMÍNGUEZ [id number] [facility] [address] [place] [address] [id number] MR#: [id number] NAME: DALJIT DOMÍNGUEZ ROOM: P256 Age: 31 Sex: M Admission Date: 08/01/2016 : 1985 Attending Physician: Brett Steele M.D. Admitting Physician: Brett Steele M.D. Primary Care Physician: Naya De Luna PROGRESS NOTES DATE 08/03/2016 DISCUSSION Daljit Domínguez is a 31-year-old male seen on 08/03/2016. Patient interviewed. Chart reviewed. Obtained information from nursing staff. Patient was compliant, cooperative, making progress. Patient still isolative, guarded, flat affect, anxious, nervous. Complete review of system unremarkable. MENTAL STATUS EXAMINATION General appearance, patient dressed casually. Patient's vital signs are 98.4, 98, 18. Complete review of system unremarkable. Thought process goal-directed. Patient denied any thoughts of harming self or others or any psychotic symptoms. Recent and remote memory poor. Insight and judgement poor. DIAGNOSES 1. Opiate use disorder, severe. 2. Mood disorder NOS. ASSESSMENT/PLAN Advised to continue with current medication and therapeutic protocol. Will monitor response to medication and make further adjustment of medication. Dictated by... Alice Jha/piedad TD: 08/04/2016 19:34 JOB #: [id number] Unit #: [id number] #: [id number] Patient: DALJIT DOMÍNGUEZ [facility] PROGRESS NOTES X Brett Steele MD PROGRESS NOTE
--- NOTE | ~2016-08-01 | HP ---
Unit #: [id number] #: [id number] Patient: DALJIT DOMÍNGUEZ [id number] [facility] [address] [place] [address] [id number] I MR#: [id number] NAME: DALJIT DOMÍNGUEZ ROOM: P256 Age: 31 Sex: M Admission Date: 08/01/2016 : 1985 Attending Physician: Brett Steele M.D. Admitting Physician: Brett Steele M.D. Primary Care Physician: Amalia Gomez Aprn HISTORY AND PHYSICAL Daljit is a 31 year old admitted to [address] [place] [address] because of his continued drug use. He was admitted to [facility] on 07/30/16 with acute hypoxemic respiratory failure. When medically stable, he was transferred to [facility] for psychiatric care. Patient was seen and H and P dated 07/30/16 was reviewed. This is current. No changes. Please see H and P dated 07/30/16. Dictated by... Sagrario Guy P.A.-C. for Alice Melvin/piedad TD: 08/02/2016 19:54 JOB #: [id number] HISTORY AND PHYSICAL X Sagrario Guy HISTORY AND PHYSICAL
--- NOTE | ~2016-08-01 | PN ---
Unit #: [id number] #: [id number] Patient: DALJIT DOMÍNGUEZ [id number] [facility] [address] [place] [address] [id number] I MR#: [id number] NAME: DALJIT DOMÍNGUEZ ROOM: P256 Age: 31 Sex: M Admission Date: 08/01/2016 : 1985 Attending Physician: Brett Steele M.D. Admitting Physician: Brett Steele M.D. Primary Care Physician: Naya De Luna NOTES DATE OF SERVICE: 08/04/2016 DISCUSSION Daljit Domínguez is a 31-year-old male, seen on 08/04/2016. The patient interviewed, chart reviewed, obtained information from nursing staff. The patient was compliant, cooperative. Mood is sad, dysphoric, flat affect, withdrawn, isolative, guarded, making progress. REVIEW OF SYSTEMS Complete review of systems is unremarkable. MENTAL STATUS EXAMINATION General appearance; the patient dressed casually. Attention span and concentration, fair. Oriented in place and person. Mood and affect; sad, dysphoric, withdrawn, flat. Speech, monotone. Thought process, concrete. The patient denied any thoughts of harming self or others, but guarded. Recent and remote memory, poor. Insight and judgment, poor. DIAGNOSES 1. Mood disorder, not otherwise specified. 2. Opioid use disorder, severe. ASSESSMENT AND PLAN Advised to continue with current medication and therapeutic protocol. We will monitor response to medication and make further adjustment of medication. Dictated by... Alice Jha/krystal TD: 08/05/2016 07:15 JOB #: [id number] Unit #: [id number] #: [id number] Patient: DALJIT DOMÍNGUEZ DELBERT PROGRESS NOTES X Brett Steele MD PROGRESS NOTE
[~2016-08-01 22:48] MED LIST changes: +GABAPENTIN300 M2 PO; +HYDROXYZINE HCL50 MG PO; +PROTONIX PO; +REQUIP1 MG PO; +TRAZODONE HCL100 MG PO
[2016-08-02 12:53] LABS: THYROID STIMULATING HORMONE 0.46 uIU/ml (0.34-5.60)
[2016-08-02 13:00] LABS: FREE THYROXIN (T4) 0.77 ng/dL (0.58-1.64)
[2016-08-03 13:28] LABS: URINE APPEARANCE CLEAR; URINE BILIRUBIN NEG (NEG); URINE BLOOD NEG (NEG); URINE COLOR YELLOW; URINE GLUCOSE NEG (NEG); URINE KETONE NEG (NEG); URINE LEUKOCYTE ESTERASE NEG (NEG); URINE NITRATE NEG (NEG); URINE PH 7.5 (5-8); URINE PROTEIN NEG (NEG); URINE SPECIFIC GRAVITY 1.014 (1.003-1.035)
[2016-08-03 13:43] LABS: AMPHETAMINE NEG (NEG); BARBITURATES NEG (NEG); BENZODIAZEPINES NEG (NEG); COCAINE NEG (NEG); MARIJUANA NEG (NEG); OPIATES NEG (NEG); TRICYCLIC ANTIDEPRESSANTS NEG (NEG); U METHADONE NEG (NEG)
== END 2016-08-06 12:00 | disposition home or self-care (01) | DRG 897 ==
LOC: P2L 22:48
PROVIDERS: Psychiatry & Neurology Psychiatry
PROC: HZ2ZZZZ Detoxification Services for Substance Abuse Treatment (ICD-10-PCS; principal; 2016-08-02)
DX: F11.23 Opioid dependence with withdrawal (principal); F39 Unspecified mood [affective] disorder; B19.20 Unspecified viral hepatitis C without hepatic coma; F41.9 Anxiety disorder, unspecified
CPT/HCPCS: 80307; 81003; 84439; 84443; 86592